=== PATIENT | male | born 1995 | race American Indian/Alaskan Native ===

== ENCOUNTER 2019-09-20 16:12 | Emergency (ER) | payer SELFPAY ==
[2019-09-20 16:20] VITALS: BP 123/82
--- NOTE | 2019-09-20 16:22 | Emergency Department Report ---
Blank Doc - Documentation Documentation: 23-year-old male that presents with left knee pain. This initial assessment/diagnostic orders/clinical plan/treatment(s) is/are subject to change based on patient's health status, clinical progression and re- assessment by fellow clinical providers in the ED. Further treatment and workup at subsequent clinical providers discretion. Patient/guardians urged not to elope from the ED as their condition may be serious if not clinically assessed and managed. Initial orders include: 1- Patient sent to [facility] for further evaluation and treatment 2- xrays
--- NOTE | 2019-09-20 17:04 | XRay Report ---
LEFT KNEE, 3 VIEWS 09/20/2019 INDICATION / CLINICAL INFORMATION: knee pain. COMPARISON: None available. FINDINGS: No skeletal or soft tissue abnormality. Signer Name: Dominguez Madison MD Signed: 09/20/2019 5:00 PM Workstation Name: [id number]
[2019-09-20] MEDS ORDERED: traMADol 50 MG TAB PO ONE (19:28)
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
== END 2019-09-20 20:55 | disposition home or self-care (01) ==
LOC: ED 16:12
DX: S86.912A Strain of unspecified muscle(s) and tendon(s) at lower leg level, left leg, initial encounter (principal); F17.200 Nicotine dependence, unspecified, uncomplicated; X58.XXXA Exposure to other specified factors, initial encounter; Y93.89 Activity, other specified; Y92.89 Other specified places as the place of occurrence of the external cause; Y99.8 Other external cause status

== ENCOUNTER 2019-09-28 18:54 | Emergency (ER) | payer SELFPAY ==
[2019-09-28 19:36] VITALS: BP 114/67
== END 2019-09-28 21:00 | disposition left against medical advice (07) ==
LOC: ED 18:54
DX: M25.562 Pain in left knee (principal); Z53.21 Procedure and treatment not carried out due to patient leaving prior to being seen by health care provider